=== PATIENT | male | born 1935 | race Caucasian/White ===

== ENCOUNTER → 2017-05-31 | Outpatient (CLI) | payer OTHER ==
--- NOTE | 2017-05-31 12:47 | RAD ---
HISTORY: Right hip pain Study: AP pelvis and frog-leg view right hip Comparison: None Findings: There is severe joint space narrowing throughout the right hip with prominent osteophytes and scleros is along the femoral head and adjacent right acetabulum. There is mild joint space narrowing in the l eft hip. The pelvis is intact. The bones are osteopenic. No fracture or dislocation is seen. 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 Osteopenia with no acute bony abnormality seen. Reported By:
--- NOTE | 2017-05-31 12:49 | RAD ---
HISTORY: Back pain Study: Lumbar spine series Comparison: None Findings: There is moderately severe disc space narrowing throughout with large marginal osteophytes throughout . No fracture or subluxation is seen. The pedicles are intact. There are moderate sclerotic changes o f facets inferiorly with no pars defect seen. The bones are osteopenic. There is severe joint space n arrowing in the right hip superiorly. IMPRESSION: Moderately severe multilevel degenerative disc disease with no acute abnormality seen Moderate osteoarthritic changes of facets inferiorly with no pars defects Osteopenia. Severe osteoarthritic changes along the right hip superiorly. Reported By:
== END | disposition home or self-care (01) ==
LOC: RAD 11:10
PROVIDERS: ATTEND Nurse Practitioner Family
DX: M54.17 Radiculopathy, lumbosacral region (principal); M25.551 Pain in right hip; M47.896 Other spondylosis, lumbar region; M85.88 Other specified disorders of bone density and structure, other site; M51.36 Other intervertebral disc degeneration, lumbar region
CPT/HCPCS: 72100; 73501

== ENCOUNTER → 2017-06-06 | Outpatient (CLI) | payer OTHER ==
--- NOTE | 2017-06-07 08:54 | MRI ---
HISTORY: RIGHT HIP PAIN. EXAM: NON CONTRAST MRI EXAM OF THE RIGHT HIP JOINT. TECHNIQUE: Multisequence and multiplanar T1 and T2 weighted sequences of the right hip joint were obt ained without the administration of IV paramagnetic contrast at 1.5 Becky. COMPARISON: No recent comparisons. 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 There is marginal osteophyte formation about the right hip joint wit h acetabular over coverage which probably reflects a component of chronic, predominantly pincer type, CHAYITO. However, there is abnormal bone marrow edema seen throughout the proximal femoral neck and femo ral head with bone on bone right hip joint space height loss and bone marrow edema seen within the re modeled acetabulum. There is a small hip joint effusion this degree of bone marrow edema can be seen with chronic chondromalacia or from early AVN, although no crescent sign or subchondral collapse is s een. Although there is no large effusion, infection should also be considered and excluded in this pa tient. There is diffuse fluid throughout the ileo psoas bursa which would be the in keeping with ilio psoas bursitis. No acute fracture or subchondral fracture is yet seen other significant hip joint inj uries or abnormalities are identified. There is no evidence for a left hip joint fracture or other le ft hip joint bone marrow abnormality. No insufficiency fracture is seen. The prostate gland is hetero geneous and enlarged, bulging into the bladder base, measuring 47 x 40 mm. Please correlate to evalua te for prostate carcinoma versus other prostate diseases such as BPH, given this finding. No other si gnificant pelvic soft tissue masses or abnormalities are identified. 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 There is marginal osteophyte formation about the right hip joint wit h acetabular over coverage which probably reflects a component of chronic, predominantly pincer type, CHAYITO. This will need appropriate clinical context. Additionally, there is abnormal bone marrow edema seen throughout the proximal femoral neck and femor al head with bone on bone right hip joint space height loss and bone marrow edema seen within the rem odeled acetabulum. Small right hip joint effusion. This degree of bone marrow edema can be seen with chronic chondromalacia or from early AVN, although no crescent sign or subchondral collapse is yet seen. Although there is no large effusion, infection should also be considered and excluded in this patient. Fluid filled distention throughout the ileo-psoas bursa which would be the in keeping with iliopsoas bursitis. No acute fracture or subchondral fracture is yet seen. The prostate gland is heterogeneous and enlarged, bulging into the bladder base, measuring 47 x 40 mm . Please correlate physically and with PSA to evaluate for prostate carcinoma versus other prostate d iseases/enlargement such as BPH, given this finding. Reported By:
== END | disposition home or self-care (01) | DRG 554 ==
LOC: RAD 15:52
PROVIDERS: ATTEND Nurse Practitioner Family
DX: M16.11 Unilateral primary osteoarthritis, right hip (principal); R26.2 Difficulty in walking, not elsewhere classified; M25.551 Pain in right hip; M94.251 Chondromalacia, right hip; M25.751 Osteophyte, right hip; R60.0 Localized edema; M25.451 Effusion, right hip; N40.0 Benign prostatic hyperplasia without lower urinary tract symptoms
CPT/HCPCS: 73721

== ENCOUNTER → 2017-09-19 | Outpatient (CLI) | payer OTHER | LOC: LAB 12:42 | PROVIDERS: ATTEND Orthopaedic Surgery Orthopaedic Trauma | DX: Z79.01 Long term (current) use of anticoagulants (principal); Z98.890 Other specified postprocedural states; Z96.641 Presence of right artificial hip joint | CPT/HCPCS: 36415; 85610 ==

== ENCOUNTER → 2017-09-22 | Outpatient (CLI) | payer OTHER | LOC: LAB 12:04 | PROVIDERS: ATTEND Orthopaedic Surgery Orthopaedic Trauma | DX: Z79.01 Long term (current) use of anticoagulants (principal); Z98.890 Other specified postprocedural states; Z96.641 Presence of right artificial hip joint | CPT/HCPCS: 36415; 85610 ==

== ENCOUNTER → 2017-09-26 | Outpatient (CLI) | payer OTHER | LOC: LAB 12:32 | PROVIDERS: ATTEND Orthopaedic Surgery Orthopaedic Trauma | DX: Z79.01 Long term (current) use of anticoagulants (principal) | CPT/HCPCS: 36415; 85610 ==

== ENCOUNTER → 2017-09-29 | Outpatient (CLI) | payer OTHER | LOC: LAB 11:55 | PROVIDERS: ATTEND Orthopaedic Surgery Orthopaedic Trauma | DX: Z79.01 Long term (current) use of anticoagulants (principal); R79.1 Abnormal coagulation profile; Z98.890 Other specified postprocedural states; Z96.641 Presence of right artificial hip joint | CPT/HCPCS: 36415; 85610 ==